=== PATIENT | female | born 1960 | race African-American/Black ===

== ENCOUNTER 2020-12-11 15:29 | Emergency (ER) | payer OTHER ==
[~2020-12-11] VITALS: Ht 177.8 cm; Wt 72.6 kg
--- NOTE | 2020-12-11 15:54 | Emergency Room Report ---
History of Present Illness General Chief Complaint: Generalized Weakness Source: Patient, Medical Record, EMS Present Illness HPI Patient is a 60-year-old female past medical history of lupus, rheumatoid arthritis diagnosed with COVID-19 twice last diagnosed approximately 2 weeks ago who presents to the ER from her extended care facility by EMS for increased lethargy and altered mental status. Patient is alert and oriented x1. She states that she feels tired. She denies having any pain. She denies any shortness of breath or chest pain. She denies any abdominal pain nausea or vomiting. Patient is not a good historian. 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 Patient History Reviewed Nursing Documentation: PMH: Agreed; PSxH: Agreed Nursing Documentation-PMH Past Medical History: No History, Except For Hx Hypertension: Yes Hx COPD: No - LUPUS Hx Cerebrovascular Accident: Yes Review of Systems All Other Systems: limited - ams Physical Exam Vital Signs Date Time Temp Pulse Resp B/P (MAP) Pulse Ox O2 Delivery O2 Flow Rate FiO2 12/11/20 15:21 98.4 112 20 104/66 (79) 100 Nasal Cannula 2.0 Sp02 EP Interpretation: reviewed, normal - on 2L NC General Appearance: alert, non-toxic, other - GCS 14, Chronically Ill Head: normocephalic, atraumatic Eyes: bilateral eye normal inspection, bilateral eye PERRL ENT: dry mucus membranes Neck: full range of motion, supple, no meningismus Respiratory: rhonchi, other - Tachypneic Cardiovascular #1: tachycardia Gastrointestinal: non tender, soft, no guarding, no rebound Rectal: deferred 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 Patient with reported positive COVID-19 test. Patient mildly anemic not currently requiring blood transfusion. Per retirement staff patient is weak. Patient is requiring 2 L nasal cannula. Oxygen saturations are in the high 90s on supplemental oxygen. Patient will be transferred for further treatment and evaluation. Laboratory Tests Test 12/11/20 15:46 12/11/20 15:52 12/11/20 16:50 White Blood Count 9.3 K/UL (4.8-10.8) Red Blood Count 3.67 M/UL (4.20-5.40) L Hemoglobin 10.6 G/DL (12.0-16.0) L Hematocrit 32.5 % (37.0-47.0) L Mean Corpuscular Volume 88 FL (80-99) Mean Corpuscular Hemoglobin 28.8 PG (27.0-31.0) Mean Corpuscular Hemoglobin Concent 32.5 G/DL (32.0-36.0) Red Cell Distribution Width 16.3 % (11.6-14.8) H Platelet Count 397 K/UL (150-450) Mean Platelet Volume 8.8 FL (6.5-10.1) Neutrophils (%) (Auto) 65.9 % (45.0-75.0) Lymphocytes (%) (Auto) 22.4 % (20.0-45.0) Monocytes (%) (Auto) 9.1 % (1.0-10.0) Eosinophils (%) (Auto) 1.2 % (0.0-3.0) Basophils (%) (Auto) 1.4 % (0.0-2.0) Prothrombin Time 11.3 SEC (9.30-11.50) Prothrombin Time INR 1.0 (0.9-1.1) Activated Partial Thromboplast Time 27 SEC (23-33) D-Dimer 2.99 mg/L FEU (0.00-0.49) H Sodium Level 137 MMOL/L (136-145) Potassium Level 4.0 MMOL/L (3.5-5.1) Chloride Level 103 MMOL/L (98-107) Carbon Dioxide Level 25 MMOL/L (21-32) Blood Urea Nitrogen 16 mg/dL (7-18) Creatinine 0.8 MG/DL (0.55-1.30) Estimated Glomerular Filtration Rate > 60 mL/min (>60) Glucose Level 159 MG/DL (74-106) H Calcium Level 10.9 MG/DL (8.5-10.1) H Magnesium Level 1.8 MG/DL (1.8-2.4) Ferritin 700 NG/ML (8-388) H Total Bilirubin 0.3 MG/DL (0.2-1.0) Aspartate Amino Transferase (AST) 28 U/L (15-37) Alanine Aminotransferase (ALT) 42 U/L (12-78) Alkaline Phosphatase 145 U/L (46-116) H Lactate Dehydrogenase 201 U/L (81-234) Total Creatine Kinase 44 U/L (26-308) Troponin I 0.000 ng/mL (0.000-0.056) C-Reactive Protein, Quantitative 2.3 mg/dL (0.00-0.90) H Pro-B-Type Natriuretic Peptide 93 pg/mL (0-125) Total Protein 8.3 G/DL (6.4-8.2) H Albumin 3.0 G/DL (3.4-5.0) L Globulin 5.3 g/dL Albumin/Globulin Ratio 0.6 (1.0-2.7) L Arterial Blood pH 7.458 (7.350-7.450) Arterial Blood Partial Pressure CO2 35.4 mmHg (35.0-45.0) Arterial Blood Partial Pressure O2 95.8 mmHg (75.0-100.0) Arterial Blood HCO3 24.5 mmol/L (22.0-26.0) Arterial Blood Oxygen Saturation 97.2 % (95-100) Arterial Blood Base Excess 0.9 (-2-2) Curtis Test Positive Lactic Acid Level 1.20 mmol/L (0.4-2.0) EKG Diagnostic Results Troponin ordered: Yes When was troponin ordered?: Dec 11, 2020 EKG Time: 16:31 EP Interpretation: Jacquelyn Madsen MD Rate: tachycardiac - 106 bpm Rhythm: other - Sinus tachycardia right bundle branch block incomplete ST Segments: no acute changes ASA given to the pt in ED: No Rhythm Strip Diag. Results Rhythm Strip Time: 15:54 EP Interpretation: yes - Jacquelyn Madsen MD Rate: 106 bpm Rhythm: no PVC's, no ectopy, other - Sinus tachycardia Chest X-Ray Diagnostic Results Chest X-Ray Diagnostic Results : Chest X-Ray Ordered: Yes # of Views/Limited/Complete: 1 View Indication: Shortness of Breath EP Interpretation: Yes Interpretation: no effusion, no pneumothorax, other - Bilateral lower lobe infiltrate vs atelectasis Impression: Other - pneumonia Electronically Signed by: Jacquelyn Madsen MD Last Vital Signs Date Time Temp Pulse Resp B/P (MAP) Pulse Ox O2 Delivery O2 Flow Rate FiO2 12/11/20 15:21 98.4 112 20 104/66 (79) 100 Nasal Cannula 2.0 Disposition: ADMITTED INPATIENT - Transfer to outside facility Condition: Critical Physician Consult: Dr. Prasad Referrals: Irineo Hurd M.D. (PCP) Additional Instructions: Please note that this report is being documented using DRAGON technology. This can lead to erroneous entry secondary to incorrect interpretation by the dictating instrument. Jacquelyn Madsen M.D. Dec 11, 2020 15:54
[2020-12-11] MEDS ORDERED: Cefepime HCl 2 GM in D5W 55 ML IVPB ONE (16:00)
[2020-12-11] MEDS ORDERED: dexAMETHasone 10mg/ml Inj IV ONE (16:00)
[2020-12-11] MEDS ORDERED: Vancomycin 1 GM in NS 275 ML IVPB ONE (16:00)
[2020-12-11 16:15] LABS: BASOPHILS % (AUTO) 1.4 % (0.0-2.0); EOSINOPHILS % (AUTO) 1.2 % (0.0-3.0); HEMATOCRIT 32.5 % (37.0-47.0); HEMOGLOBIN 10.6 G/DL (12.0-16.0); LYMPHOCYTES % (AUTO) 22.4 % (20.0-45.0); MEAN CORPUSCULAR VOLUME 88 FL (80-99); MONOCYTES % (AUTO) 9.1 % (1.0-10.0); NEUTROPHILS % (AUTO) 65.9 % (45.0-75.0); PLATELET COUNT 397 K/UL (150-450); RED BLOOD COUNT 3.67 M/UL (4.20-5.40); RED CELL DISTRIBUTION WIDTH 16.3 % (11.6-14.8); WHITE BLOOD COUNT 9.3 K/UL (4.8-10.8)
[2020-12-11] MEDS ORDERED: Omnipaque 350 100ml vial INJ PRN (16:30)
--- NOTE | 2020-12-11 16:32 | Diagnostic Imaging Report ---
Procedure: XRAY Chest 1v Reason for study: Shortness of breath. Comparison films: None. FINDINGS: A single one view chest is obtained. Vascularity is normal. Streaky atelectasis noted in the lung bases. Cardiac and mediastinal silhouette are within normal limits. CP angles are sharp. The bony thorax appear unremarkable. IMPRESSION: Streaky basilar atelectasis.
[2020-12-11 16:50] LABS: ALANINE AMINOTRANSFERASE 42 U/L (12-78); ALBUMIN/GLOBULIN RATIO 0.6 (1.0-2.7); ALKALINE PHOSPHATASE 145 U/L (46-116); ASPARTATE AMINO TRANSFERASE 28 U/L (15-37); BILIRUBIN,TOTAL 0.3 MG/DL (0.2-1.0); BLOOD UREA NITROGEN 16 mg/dL (7-18); CALCIUM 10.9 MG/DL (8.5-10.1); CARBON DIOXIDE 25 MMOL/L (21-32); CREATINE KINASE 44 U/L (26-308); CREATININE 0.8 MG/DL (0.55-1.30); FERRITIN 700 NG/ML (8-388); LACTATE DEHYDROGENASE 201 U/L (81-234)
[2020-12-11 16:58] LABS: CHLORIDE 103 MMOL/L (98-107); SODIUM 137 MMOL/L (136-145)
[2020-12-11 17:18] VITALS: BP 111/67
--- NOTE | 2020-12-11 18:42 | Diagnostic Imaging Report ---
EXAM: CT Head Without Intravenous Contrast CLINICAL HISTORY: AMS TECHNIQUE: Axial computed tomography images of the head/brain without intravenous contrast. CTDI is 53.4 mGy and DLP is 965.4 mGy-cm. One or more of the following dose reduction techniques were used: automated exposure control, adjustment of the mA and/or kV according to patient size, use of iterative reconstruction technique. COMPARISON: No relevant prior studies available. FINDINGS: Brain: No acute intracranial hemorrhage or cortical ischemia. Chronic small vessel ischemic changes. Ventricles: Unremarkable. Bones/joints: Unremarkable. No acute fracture. Soft tissues: Unremarkable. Sinuses: Paranasal sinus mucosal thickening. Mastoid air cells: Unremarkable as visualized. Tubes, lines and devices: Right intraventricular catheter. IMPRESSION: 1. No acute intracranial hemorrhage or skull fracture. 2. Paranasal sinus mucosal thickening.
[2020-12-11 19:15] VITALS: BP 125/80
--- NOTE | 2020-12-11 19:18 | Diagnostic Imaging Report ---
EXAM: CT Angiography Chest With Intravenous Contrast CLINICAL HISTORY: SOB TECHNIQUE: Axial computed tomographic angiography images of the chest with intravenous contrast. CTDI is 56.80 mGy and DLP is 337.10 mGy-cm. One or more of the following dose reduction techniques were used: automated exposure control, adjustment of the mA and/or kV according to patient size, use of iterative reconstruction technique. MIP reconstructed images were created and reviewed. COMPARISON: No relevant prior studies available. FINDINGS: Limitations: Limited due to motion. Pulmonary arteries: No definite PE visualized. Aorta: No aortic dissection. Lungs: No focal consolidation. Emphysematous lung changes. Pleural space: Unremarkable. No significant effusion. No pneumothorax. Heart: Cardiomegaly. Trace pericardial effusion. Bones/joints: No acute fracture. Soft tissues: Unremarkable. Lymph nodes: Unremarkable. IMPRESSION: 1. Limited due to motion. 2. No definite PE visualized. 3. No focal consolidation.
--- NOTE | 2020-12-11 19:21 | NUR ---
Received patient today from rehab facility. Per facility, today patient awoke with AMS which is not her regular presentation. Upon arrival, patient was able to say her name and answer basic questions. Patient has an extensive medicaL history. Per patient's daughter. she was able- bodied doing everything on her own until September 2020 when she suffered a brain bleed. Since then, patient has contracted COVID twice- most recent being 14 + days ago. She is pending admisssion to the floor. 20G placed to R hand, patent and secured. all medication given and tolerated.
--- NOTE | 2020-12-11 19:22 | NUR ---
ED Nurse Note: Took over patient care. Pt is laying in bed AAOx1, breathing even and unlabored. Sinus tach on monitor EDMD aware, other vital signs stable. No signs of pain/ distress noted.
--- NOTE | 2020-12-11 19:50 | NUR ---
ED Nurse Note: Spoke with daughter Yolanda. Updated on pt's condition. Consented to have pt be transfered to [facility]. YUE Ferreira witness consent over the phone.
--- NOTE | 2020-12-11 20:18 | NUR ---
ED Nurse Note: Report given to YUE Padilla at [facility].
--- NOTE | 2020-12-11 21:57 | NUR ---
ED Nurse Note: Pt laying comfortably in bed, linen and diaper changed. Warm blankets provided, and repositioned for comfort. Waiting for ambulance to transfer pt.
[2020-12-11 21:58] VITALS: BP 156/91
--- NOTE | 2020-12-11 23:06 | NUR ---
ED Nurse Note: [facility] at bedside. Report given to [place] EMT.
[2020-12-11 23:22] VITALS: BP 130/70
--- NOTE | 2020-12-11 23:22 | NUR ---
ER DISCHARGE NOTE: Patient is cleared to be transfered to [facility] via [facility] ambulance, pt is aox1, on room air, with sinus tach on monitor HR 115, per EDMD ok to transfer pt. EMT [place] was given pt summary packet and belongings.
== END 2020-12-11 23:22 | disposition other institution (70) ==
LOC: EDBD 15:29 → EMR 15:50
DX: G93.40 Encephalopathy, unspecified (principal); R53.1 Weakness; U07.1 COVID-19; D64.9 Anemia, unspecified; I10 Essential (primary) hypertension; Z86.73 Personal history of transient ischemic attack (TIA), and cerebral infarction without residual deficits
CPT/HCPCS: 36415; 70450; 71045; 71275; 80053; 82550; 82728; 82803; 83605; 83615; 83735; 83880; 84484; 85025; 85379; 85610; 85730; 86140; 87040; 93005; 96361; 96365; 96367; 96375; J3370; J7030; J7050; Q9967; Z7502; 99285